=== PATIENT | male | born 1985 | race Caucasian/White ===

== ENCOUNTER 2018-08-10 15:07 | Emergency (ER) | payer MEDICAID, OTHER ==
[2018-08-10] MEDS ORDERED: IBUPROFEN 600 MG TAB PO ONE ×2 (15:45→15:47)
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
[2018-08-10 16:06] VITALS: BP 138/95
== END 2018-08-10 16:05 | disposition home or self-care (01) ==
DX: S70.02XA Contusion of left hip, initial encounter (principal); M54.5 Low back pain; V03.00XA Pedestrian on foot injured in collision with car, pick-up truck or van in nontraffic accident, initial encounter; Y92.410 Unspecified street and highway as the place of occurrence of the external cause; Y99.8 Other external cause status